=== PATIENT | male | born 1995 | race Caucasian/White ===

== ENCOUNTER 2021-08-10 09:32 | Emergency (ER) | payer OTHER ==
[~2021-08-10] VITALS: Ht 182.9 cm; Wt 116.8 kg
[2021-08-10 09:42] VITALS: TEMP 97.7
[2021-08-10 11:58] VITALS: BP 129/77; PULSE 70
== END 2021-08-10 12:02 | disposition home or self-care (01) ==
LOC: COL.ER 09:32
DX: R51.9 Headache, unspecified (principal); R11.10 Vomiting, unspecified; Z20.822 Contact with and (suspected) exposure to COVID-19; Z87.891 Personal history of nicotine dependence
CPT/HCPCS: J1885; J2765; J7030

== ENCOUNTER 2021-09-03 12:44 | Emergency (ER) | payer OTHER ==
[~2021-09-03] VITALS: Ht 182.9 cm; Wt 113.6 kg
[2021-09-03 13:48] VITALS: TEMP 98.3
[2021-09-03 15:46] VITALS: BP 138/79; PULSE 90
== END 2021-09-03 15:47 | disposition home or self-care (01) ==
LOC: COL.ER 12:44
DX: B34.9 Viral infection, unspecified (principal); Z20.822 Contact with and (suspected) exposure to COVID-19

== ENCOUNTER 2022-03-28 20:25 | Emergency (ER) | payer OTHER ==
[~2022-03-28] VITALS: Ht 182.9 cm; Wt 109.1 kg
[2022-03-28 20:37] VITALS: TEMP 98
[2022-03-28 20:58] LABS: COLLECTION METHOD CLEAN CATCH
[2022-03-28 21:06] LABS: PH 5 (5-8); SQUAMOUS EPITHELIAL 0-2 /hpf (0-10); URINE APPEARANCE Clear (CLEAR/HAZY); URINE BACTERIA None Seen /hpf (NONE SEEN); URINE BLOOD Negative (NEGATIVE); URINE COLOR Yellow (YELLOW); URINE GLUCOSE Negative (NEGATIVE); URINE KETONE Trace (NEGATIVE); URINE NITRATE Negative (NEGATIVE); URINE PROTEIN(semi-quant) Negative (NEGATIVE); URINE RBC 0-2 /hpf (0-2)
[2022-03-28 21:26] VITALS: BP 123/70; PULSE 83
== END 2022-03-28 21:29 | disposition home or self-care (01) ==
LOC: COL.ER 20:25
PROVIDERS: Emergency Medicine
DX: N50.812 Left testicular pain (principal)